=== PATIENT | female | born 1990 | race Caucasian/White ===

== ENCOUNTER 2019-10-28 12:49 | Emergency (ER) | payer OTHER ==
[2019-10-28] MEDS ORDERED: Fosphenytoin 500 MG.PE/10 ML SDV IV ONE (12:50)
[2019-10-28] MEDS ORDERED: LORazepam 2 MG/ML Syringe IVPUSH ONE (13:22)
[2019-10-28] MEDS ORDERED: levETIRAcetam in NaCl (iso-os) 500 MG in Premix Bag 1 BAG IV ONE ×2 (13:22)
[2019-10-28] MEDS ORDERED: Ondansetron 4 MG/2 ML SDV ONE (13:36)
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
[2019-10-28] MEDS ORDERED: Fosphenytoin 1,000 MG.PE in Sodium Chloride 0.9% 50 ML IV ONE (13:47)
[2019-10-28] MEDS ORDERED: Ondansetron 4 MG/2 ML SDV IVPUSH STA (13:50)
[2019-10-28] MEDS ORDERED: Sodium Chloride 0.9% 50 ML ONE (14:12)
[2019-10-28] MEDS ORDERED: Fosphenytoin 500 MG.PE/10 ML SDV ONE (14:12)
== END 2019-10-28 14:40 ==
LOC: CC.ED 12:49
DX: G40.409 Other generalized epilepsy and epileptic syndromes, not intractable, without status epilepticus (principal)
CPT/HCPCS: 36415; 70450; 80053; 80305-QW; 80307; 81001; 83605; 84703; 85025; 96374; 96375; 99285-25; J2060; J2405; J7050; Q2009